=== PATIENT | female | born 1955 ===

== ENCOUNTER 2017-02-04 07:00 | Inpatient (IN) | payer OTHER ==
[~2017-02-04] VITALS: Ht 154.9 cm; Wt 83.9 kg
[2017-04-08] VITALS (10 sets, daily range): BP systolic 118–161; BP diastolic 52–93
--- NOTE | 2017-04-08 08:05 | Pre-Procedure Note/Attestation ---
Pre-Procedure Note/Attestation Complete Prior to Procedure Planned Procedure: bilateral Procedure Narrative: Posterior lumbar decompression interbody fusion, pedicle screw fixation and iliac crest bone marrow aspiration, with autograft and allograft for L4-5 level Attestation I attest that I discussed the nature of the procedure; its benefits; risks and complications; and alternatives (and the risks and benefits of such alternatives ), prior to the procedure, with the patient (or the patient's legal media sales representative). I attest that, if there was a reasonable possibility of needing a blood transfusion, the patient (or the patient's legal media sales representative) was given the [facility] standardized written summary, pursuant to the Xavi Chevak Blood Safety Act ([place] Health and Safety Code # 1645, as amended). I attest that I re-evaluated the patient just prior to the surgery and that there has been no change in the patient's H&P, except as documented below: MYRNA CORCORAN Apr 08, 2017 08:05
[2017-04-08] MEDS ORDERED: Vancomycin 1 GM in D5W 275 ML IVPB ONE (08:45)
[2017-04-08] MEDS ORDERED: Pantoprazole Inj IVP ONE (09:30)
[2017-04-08] MEDS ORDERED: TRAMADOL HCL50 MG ORAL (09:46)
[2017-04-08] MEDS ORDERED: VENTOLIN HFA18 GM INH (09:46)
[2017-04-08] MEDS ORDERED: MULTIVITAMINS1 EAC2 ORAL (09:46)
[2017-04-08] MEDS ORDERED: IBUPROFEN600 MG ORAL (09:46)
[2017-04-08] MEDS ORDERED: AMLODIPINE BESYL5 MG ORAL (09:48)
[2017-04-08] MEDS ORDERED: LR 1000ml 1,000 ML IVLG SCH (10:20)
--- NOTE | 2017-04-08 10:20 | Anethesia Preoperative Eval ---
Anesthesia Pre-op PMH/ROS General Date of Evaluation: Apr 08, 2017 Time of Evaluation: 11:56 Anesthesiologist: Ranjith ASA Score: ASA 3 Mallampati Score Class I : Soft palate, uvula, fauces, pillars visible Class II: Soft palate, uvula, fauces visible Class III: Soft palate, base of uvula visible Class IV: Only hard plate visible Mallampati Classification: Class III Surgeon: Hedy Diagnosis: Back Pain Surgical Procedure: PSF L4-5, Allograft Anesthesia History: none Social History: smoking, current smoker Family History: no anesthesia problems Allergies: Coded Allergies: PENICILLIN G (Verified Allergy, Severe, 04/07/17) anaphylactic shock Uncoded Allergies: hayfever (Allergy, Mild, 04/07/17) runny nose Medications: see eMAR Past Medical History Cardiovascular: Reports: HTN Pulmonary: Reports: COPD HEENT: Reports: cataract (R) PSxH Narrative: D&C Anesthesia Pre-op Phys. Exam Physician Exam Last Vital Signs Date Time Temp Pulse Resp B/P Pulse Ox O2 Delivery O2 Flow Rate FiO2 04/08/17 10:02 97.3 66 18 141/67 98 Room Air Constitutional: NAD Neurologic: CN 2-12 intact Cardiovascular: RRR Respiratory: CTA Gastrointestinal: S/NT/ND Airway Exam Mallampati Score: Class III MO: limited ROM: limited Teeth: missing, intact Anesthesia Pre-op A/P Risk Assessment & Plan Assessment: ASA 3 Plan: GA, BIS, Glidescope Status Change Before Surgery: No Pre-Antibiotics Drug: Vancomycin 1 Gram IV Given Within 1 Hr of Incision: Yes Time Given: 12:31 Dony Kasper MD Apr 08, 2017 10:20
[2017-04-08] MEDS ORDERED: Atropine Inj 1mg/10ml Syr IV PRN (10:30)
[2017-04-08] MEDS ORDERED: Ketorolac 60mg Inj IV PRN (10:30)
[2017-04-08] MEDS ORDERED: Meperidine 25mg/0.5ml Inj IV PRN (10:30)
[2017-04-08] MEDS ORDERED: Oxycodone/Acetaminophen 5-325 ORAL PRN (10:30)
[2017-04-08] MEDS ORDERED: Norco 5mg/325mg tab ORAL PRN (10:30)
[2017-04-08] MEDS ORDERED: fentaNYL 100 mcg/2 mL IV PRN (10:30)
[2017-04-08] MEDS ORDERED: Metoclopramide 10mg/2ml Inj IVP PRN (10:30)
[2017-04-08] MEDS ORDERED: Midazolam 2mg/2ml Inj IVP PRN (10:30)
[2017-04-08] MEDS ORDERED: LORazepam Inj 2mg/ml 1ml IV PRN (10:30)
[2017-04-08] MEDS ORDERED: Ketorolac 30mg Inj IV PRN (10:30)
[2017-04-08] MEDS ORDERED: Norco 7.5mg/325mg tab ORAL PRN ×2 (10:30→19:00)
[2017-04-08] MEDS ORDERED: DiphenhydrAMINE 50mg/ml Inj IVP PRN (10:30)
[2017-04-08] MEDS ORDERED: Acetaminophen (Non formulary) 1,000 MG/100 ML ML IV ONE (11:00)
[2017-04-08] MEDS ORDERED: Thrombin 5000 units TOPIC ONE ×2 (11:29→14:57)
[2017-04-08] MEDS ORDERED: Gelfoam Absorbable 1gm powder pkt TOPIC ONE (11:30)
[2017-04-08] MEDS ORDERED: Bupivacaine w/Epi 0.5% 30ml Vial INJ ONE (11:30)
[2017-04-08] MEDS ORDERED: Bacitracin 50000 Units Vial ONE (11:30)
[2017-04-08] MEDS ORDERED: fentaNYL 100 mcg/2 mL IV ONE (12:00)
[2017-04-08] MEDS ORDERED: Sterile Water Irrig 1000ml IRRIG ONE (12:00)
[2017-04-08] MEDS ORDERED: Neostigmine 1mg/ml 10ml Inj ONE (12:00)
[2017-04-08] MEDS ORDERED: Lidocaine 1% MPF 10mg/ml 5ml ONE (12:00)
[2017-04-08] MEDS ORDERED: Lidocaine 1% Plain 30 ml INJ ONE (12:00)
[2017-04-08] MEDS ORDERED: Propofol 10mg/ml 100ml btl IV ONE (12:00)
[2017-04-08] MEDS ORDERED: Dexamethasone 4mg/ml vial ONE (12:00)
[2017-04-08] MEDS ORDERED: Glycopyrrolate 0.2mg/ml 1ml Vial ONE (12:00)
[2017-04-08] MEDS ORDERED: Midazolam 2mg/2ml Inj ONE ×2 (12:00)
[2017-04-08] MEDS ORDERED: fentaNYL 250mcg/5ml ONE (12:00)
[2017-04-08] MEDS ORDERED: LR 1000ml ONE (12:00)
[2017-04-08] MEDS ORDERED: Thrombin 5000 units spray kit TOPIC ONE (12:53)
--- NOTE | 2017-04-08 18:26 | Immediate Post-Op Evaluation ---
Immediate Post-Op Evalulation Immediate Post-Op Evalulation Procedure: PSF L4-5 Date of Evaluation: Apr 08, 2017 Time of Evaluation: 18:34 IV Fluids: 1300 LR Blood Products: 0 Estimated Blood Loss: 100 Urinary Output: 150 Blood Pressure Systolic: 172 Blood Pressure Diastolic: 83 Pulse Rate: 93 Respiratory Rate: 16 O2 Sat by Pulse Oximetry: 99 Temperature (Fahrenheit): 98.1 Pain Score (1-10): 3 Nausea: No Vomiting: No Complications 0 Patient Status: awake, reacts, patent, extubated, none Hydration Status: adequate Dru Gram Vancomycin Given Within 1 Hr of Incision: Yes Time Given: 12:31 Dony Kasper MD Apr 08, 2017 18:26
--- NOTE | 2017-04-08 18:35 | Brief Operative Note ---
Immediate Post Operative Note Operative Note Chief Complaint: Sever low back pain difficulty walking, lumbar radiculopathy Pre-op Diagnosis: 1. Intractable low back pain and lumbar radiculopathy 2. Severe central stenosis and Grade 2 L4-5 anterolisthesis 3. Pars fracture right L4-5 4. Lack of improvement form medical therapy and interventional pain injections Procedure: 1. Transforaminal approach Left L4-5 level with Facet osteotomy and intraforaminal far lateral discectomy 2. Complete L4-5 discectomy and preparation of disc space. 3. Bilateral L4 hemilaminectomies with central and lateral decompression. 4. Repair left L4-5 dural tear with 6.0 prolene, Duragen and Epidural fat graft 5. Insertion of biomechanical device 9 mm PEEK cage, filled with autograft, allograft and iliac crest bone marrow aspirate, under fluoroscopy 6. Transpedicular fixation 50 x 5.0 and 45 x 6.0 Medacta screws 7. Posterolateral arthrodesis with bone graft and 45 mm rods 8. Internal neurolysis of the L5 roots bilaterally 9. Bilateral L4-5 foraminotomies 10. Multi-layer plastic surgical closure of 10 cm lumbar wound 11. Intra-op neuromonitoring and pedicle screw stimulation. 12.Microdissection 13. Right L4-5 iliac crest aspiration for grafting 14. [place] of local bone from lamina for grafting 15. Modifier 22 for degree of difficulty Post-op Diagnosis: same as pre-op Findings: consistent w/pre-op dx studies Surgeon: Jose Knott MD Utility Appraiser: Stefano Zarate Md Anesthesiologist: Dr Kasper Anesthesia: general Specimen: yes - disc L4-5 Complications: none Condition: stable Fluids: 1.5 liters crytalloids Estimated Blood Loss: volume - 100 cc Drains: none Implant(s) used?: Yes - Medacta screws and rods. Spinal element Interbody. JOSE Contreras Apr 08, 2017 18:35
[2017-04-08] MEDS: Hydromorphone 0.5mg/0.5ml inj IVP PRN ×2 (18:46→19:07)
[2017-04-08] MEDS ORDERED: NS w/KCl 20mEq 1,000 ML IV SCH (18:53)
[2017-04-08] MEDS ORDERED: traMADol 50mg tab ORAL PRN (19:00)
[2017-04-08] MEDS ORDERED: Milk of Magnesia 30ml Ud ORAL PRN (19:00)
--- NOTE | 2017-04-08 19:04 | General Progress Note ---
Progress Note Progress Note Neurosurgery post-op S/ Comfortable No headache O/ Alert interactive Moves all extremities well Wound completely dry normal sensation in the lower extremities doing well admit MYRNA CORCORAN Apr 08, 2017 19:04
[2017-04-08] MEDS: NS w/KCl 20mEq 1,000 ML IV SCH (20:00)
--- NOTE | 2017-04-08 21:23 | General Progress Note ---
Assessment/Plan Status Narrative s/p complex spine surgery doing well pt ot perioperative antibiotic prophyalxis Assessment/Plan DVT prophylaxis Subjective Date patient seen: Apr 08, 2017 Time patient seen: 21:22 Constitutional: Reports: no symptoms Cardiovascular: Reports: no symptoms Respiratory: Reports: no symptoms Allergies: Coded Allergies: PENICILLIN G (Verified Allergy, Severe, 04/07/17) anaphylactic shock Uncoded Allergies: hayfever (Allergy, Mild, 04/07/17) runny nose Objective Last 24 Hour Vital Signs Date Time Temp Pulse Resp B/P Pulse Ox O2 Delivery O2 Flow Rate FiO2 04/08/17 19:30 98.0 92 18 129/60 100 Nasal Cannula 3.0 04/08/17 19:30 98.0 04/08/17 19:15 88 18 136/58 99 Nasal Cannula 3.0 04/08/17 19:05 86 20 147/60 99 Nasal Cannula 3.0 04/08/17 18:55 80 15 118/56 98 Nasal Cannula 3.0 04/08/17 18:45 94 20 118/52 95 Nasal Cannula 3.0 04/08/17 18:35 96 16 133/64 96 Nasal Cannula 3.0 04/08/17 18:30 98 22 151/81 97 Simple Mask 6.0 04/08/17 18:26 93 16 99 04/08/17 18:23 98.1 94 20 161/93 97 Simple Mask 6.0 04/08/17 10:02 97.3 66 18 141/67 98 Room Air Height (Feet): 5 Height (Inches): 1.00 Weight (Pounds): 185 General Appearance: WD/WN Cardiovascular: normal rate, regular rhythm, no JVD Respiratory/Chest: lungs clear Abdomen: soft Extremities: non-tender JENNIFER GOMEZ Apr 08, 2017 21:23
[2017-04-08] MEDS: HYDROmorphone 1mg/ml Carpuject IVP PRN (22:03)
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
[2017-04-09] VITALS: BP 136/75
[2017-04-09] MEDS: Cyclobenzaprine 10mg Tab ORAL PRN (00:31)
[2017-04-09] MEDS: HYDROmorphone 1mg/ml Carpuject IVP PRN ×4 (00:33→13:09)
[2017-04-09 04:00] VITALS: BP 119/56
[2017-04-09] MEDS ORDERED: Vancomycin 1 GM in D5W 275 ML IVPB SCH (06:30)
[2017-04-09] MEDS: NS w/KCl 20mEq 1,000 ML IV SCH (06:45)
[2017-04-09 07:07] LABS: ANION GAP 15 (5-15); CALCIUM 8.6 mg/dL (8.6-10.2); CARBON DIOXIDE 23 mEQ/L (20-30); CHLORIDE 99 mEQ/L (98-107); CREATININE 0.8 mg/dL (0.5-0.9); GLOMERULAR FILTRATION RATE > 60 mL/min (>60); HEMOLYSIS 0; POTASSIUM 4.9 mEQ/L (3.4-4.9); SODIUM 137 mEQ/L (135-145)
[2017-04-09 07:08] LABS: BASOPHILS % (AUTO) 0.2 % (0.0-2.0); LYMPHOCYTES % (AUTO) 7.6 % (20.0-45.0); MEAN CORPUSCULAR HGB CONC 33.2 G/DL (32.0-36.0); MEAN CORPUSCULAR VOLUME 90 FL (80-99); MEAN PLATELET VOLUME 6.8 FL (6.5-10.1); MONOCYTES % (AUTO) 9.8 % (1.0-10.0); NEUTROPHILS % (AUTO) 82.4 % (45.0-75.0); PLATELET COUNT 247 K/UL (150-450); RED BLOOD COUNT 4.12 M/UL (4.20-5.40); RED CELL DISTRIBUTION WIDTH 11.6 % (11.6-14.8); WHITE BLOOD COUNT 16.4 K/UL (4.8-10.8)
[2017-04-09 08:24] VITALS: BP 115/54
[2017-04-09] MEDS: Docusate 100mg cap ORAL SCH ×2 (08:35→18:11)
[2017-04-09] MEDS: Pericolace tab ORAL SCH ×2 (08:35→18:11)
[2017-04-09] MEDS: Norco 7.5mg/325mg tab ORAL PRN ×2 (09:33→18:11)
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
--- NOTE | 2017-04-09 11:05 | 48 Hour Post Anesthesia Eval ---
Post Anesthesia Evaluation Procedure: PSF L4-5 Date of Evaluation: Apr 09, 2017 Time of Evaluation: 11:04 Blood Pressure Systolic: 115 0: 84 Pulse Rate: 81 Respiratory Rate: 20 Temperature (Fahrenheit): 98.1 O2 Sat by Pulse Oximetry: 92 Airway: patent Nausea: No Vomiting: No Pain Intensity: 2 Hydration Status: adequate Cardiopulmonary Status: Stable Mental Status/LOC: patient returned to baseline Follow-up Care/Observations: 0 Post-Anesthesia Complications: 0 Follow-up care needed: N/A Dony Ksaper MD Apr 09, 2017 11:05
[2017-04-09 12:48] VITALS: BP 142/75
--- NOTE | 2017-04-09 13:49 | General Progress Note ---
Progress Note Progress Note Neurosuegery POD#1 S/ Feels very well. Pain under control. Ambulated with PT No headache. No leg pain O/ Vs Last 24 Hour Vital Signs Date Time Temp Pulse Resp B/P Pulse Ox O2 Delivery O2 Flow Rate FiO2 04/09/17 12:48 97.1 84 20 142/75 100 Room Air 04/09/17 11:05 81 20 92 04/09/17 08:24 98.1 81 20 115/54 92 Room Air 04/09/17 04:00 98.6 78 18 119/56 94 Room Air 04/09/17 00:00 98.1 76 18 136/75 98 Room Air 04/08/17 20:00 97.9 69 19 119/56 100 Nasal Cannula 3.5 04/08/17 19:30 98.0 92 18 129/60 100 Nasal Cannula 3.0 04/08/17 19:30 98.0 04/08/17 19:15 88 18 136/58 99 Nasal Cannula 3.0 04/08/17 19:05 86 20 147/60 99 Nasal Cannula 3.0 04/08/17 18:55 80 15 118/56 98 Nasal Cannula 3.0 04/08/17 18:45 94 20 118/52 95 Nasal Cannula 3.0 04/08/17 18:35 96 16 133/64 96 Nasal Cannula 3.0 04/08/17 18:30 98 22 151/81 97 Simple Mask 6.0 04/08/17 18:26 93 16 99 04/08/17 18:23 98.1 94 20 161/93 97 Simple Mask 6.0 exam Alert and oriented x4 Incision completely dry and flat. No fluctuance. Dressing intact. Motor 5/5 Sensory normal Labs Laboratory Tests Test 04/09/17 05:30 White Blood Count 16.4 K/UL (4.8-10.8) H Red Blood Count 4.12 M/UL (4.20-5.40) L Hemoglobin 12.3 G/DL (12.0-16.0) Hematocrit 37.1 % (37.0-47.0) Mean Corpuscular Volume 90 FL (80-99) Mean Corpuscular Hemoglobin 30.0 PG (27.0-31.0) Mean Corpuscular Hemoglobin Concent 33.2 G/DL (32.0-36.0) Red Cell Distribution Width 11.6 % (11.6-14.8) Platelet Count 247 K/UL (150-450) Mean Platelet Volume 6.8 FL (6.5-10.1) Neutrophils (%) (Auto) 82.4 % (45.0-75.0) H Lymphocytes (%) (Auto) 7.6 % (20.0-45.0) L Monocytes (%) (Auto) 9.8 % (1.0-10.0) Eosinophils (%) (Auto) 0.0 % (0.0-3.0) Basophils (%) (Auto) 0.2 % (0.0-2.0) Sodium Level 137 mEQ/L (135-145) Potassium Level 4.9 mEQ/L (3.4-4.9) Chloride Level 99 mEQ/L (98-107) Carbon Dioxide Level 23 mEQ/L (20-30) Anion Gap 15 (5-15) Blood Urea Nitrogen 18 mg/dL (7-23) Creatinine 0.8 mg/dL (0.5-0.9) Estimat Glomerular Filtration Rate > 60 mL/min (>60) Glucose Level 112 mg/dL (74-106) H Calcium Level 8.6 mg/dL (8.6-10.2) doing very well No evidence of spinal fluid leak improvement in radiculopathy. MYRNA CORCORAN Apr 09, 2017 13:49
[2017-04-09 15:52] VITALS: BP 114/91
[2017-04-09 20:22] VITALS: BP 121/57
--- NOTE | 2017-04-09 20:39 | General Progress Note ---
Assessment/Plan Status Narrative s/p complex apine surgery pt ort dvt prophyyalxis paincontrol give 10 mg oxycontin to hold her over the night Assessment/Plan DVT prophylaxis Subjective Date patient seen: Apr 09, 2017 Time patient seen: 20:38 Constitutional: Reports: no symptoms HEENT: Reports: no symptoms Cardiovascular: Reports: no symptoms Respiratory: Reports: no symptoms Allergies: Coded Allergies: PENICILLIN G (Verified Allergy, Severe, 04/07/17) anaphylactic shock Uncoded Allergies: hayfever (Allergy, Mild, 04/07/17) runny nose Subjective has a lot of pain Objective Last 24 Hour Vital Signs Date Time Temp Pulse Resp B/P Pulse Ox O2 Delivery O2 Flow Rate FiO2 04/09/17 20:22 98.2 80 19 121/57 97 Room Air 04/09/17 15:52 97.6 76 20 114/91 98 Room Air 04/09/17 12:48 97.1 84 20 142/75 100 Room Air 04/09/17 11:05 81 20 92 04/09/17 08:24 98.1 81 20 115/54 92 Room Air 04/09/17 04:00 98.6 78 18 119/56 94 Room Air 04/09/17 00:00 98.1 76 18 136/75 98 Room Air Intake and Output 04/08/17 04/09/17 19:00 07:00 Intake Total 1800 ml 600 ml Output Total 250 ml 1100 ml Balance 1550 ml -500 ml Intake Oral 400 ml IV Total 1800 ml 200 ml Output Urine Total 150 ml 1100 ml Estimated Blood Loss 100 ml # Voids 1 Laboratory Tests 04/09/17 05:30: White Blood Count 16.4H, Red Blood Count 4.12L, Hemoglobin 12.3, Hematocrit 37.1 , Mean Corpuscular Volume 90, Mean Corpuscular Hemoglobin 30.0, Mean Corpuscular Hemoglobin Concent 33.2, Red Cell Distribution Width 11.6, Platelet Count 247, Mean Platelet Volume 6.8, Neutrophils (%) (Auto) 82.4H, Lymphocytes ( %) (Auto) 7.6L, Monocytes (%) (Auto) 9.8, Eosinophils (%) (Auto) 0.0, Basophils (%) (Auto) 0.2, Sodium Level 137, Potassium Level 4.9, Chloride Level 99, Carbon Dioxide Level 23, Anion Gap 15, Blood Urea Nitrogen 18, Creatinine 0.8, Estimat Glomerular Filtration Rate > 60, Glucose Level 112H, Calcium Level 8.6 Height (Feet): 5 Height (Inches): 1.00 Weight (Pounds): 185 General Appearance: WD/WN Neck: non-tender Cardiovascular: normal rate, regular rhythm, no JVD Respiratory/Chest: chest wall non-tender Abdomen: soft JENNIFER GOMEZ Apr 09, 2017 20:39
[2017-04-09] MEDS ORDERED: oxyCONTIN 10mg tab ORAL ONE (21:15)
--- NOTE | 2017-04-09 22:31 | Discharge Summary ---
DATE OF ADMISSION: 04/08/2017 DATE OF DISCHARGE: 04/10/2017 DISCHARGE DIAGNOSIS: Status post posterior lumbar decompressive surgery, fusion and stabilization L4-L5 level with repair of spinal fluid leak. HISTORY OF PRESENT ILLNESS: Please refer to the chart for detailed History and Physical. HOSPITAL COURSE: The patient was admitted on 04/08/2017 and underwent uneventful posterior lumbar decompressive surgery and repair of incidental durotomy at L4-L5 level with pedicle screw fixation and interbody graft. She has done well postoperatively. She is ambulating. She has no headaches or postural headaches suggestive of any type of CSF leak. Her radiculopathy symptoms have improved. She is pleased with the results of the operation. She is being discharged home with appropriate discharge instructions. DISPOSITION: Home. DISCHARGE MEDICATIONS: Include [place], Flexeril, and gabapentin with the appropriate use instructions. DIET: Regular. DISCHARGE ACTIVITY: The patient is asked to wear lumbar brace when out of bed. She is asked not to do any bending, lifting, or twisting type activities. DISCHARGE INSTRUCTIONS: In case of fever more than 101 degrees, chills, or drainage from the incision, the patient is to contact Dr. Knott or go to the nearest ER. DISCHARGE FOLLOWUP: Follow up with Dr. Knott in 10 days. DISPOSITION: Home. CONSULTATIONS: Internal Medicine, Jorge Subramanian M.D. COMPLICATIONS: None. Jose Knott M.D. DR: KEISHA JOB#: [id number] CC:
[2017-04-10 00:16] VITALS: BP 128/67
[2017-04-10] MEDS: HYDROmorphone 1mg/ml Carpuject IVP PRN ×2 (00:25→06:30)
[2017-04-10] MEDS: Cyclobenzaprine 10mg Tab ORAL PRN (03:55)
[2017-04-10] MEDS: Norco 7.5mg/325mg tab ORAL PRN ×5 (03:57→22:41)
[2017-04-10 04:28] VITALS: BP 122/63
[2017-04-10 09:28] VITALS: BP 108/57
[2017-04-10] MEDS: Pericolace tab ORAL SCH ×2 (10:12→17:06)
[2017-04-10] MEDS: Docusate 100mg cap ORAL SCH ×2 (10:12→17:06)
[2017-04-10 12:00] VITALS: BP 133/56
[2017-04-10 18:04] VITALS: BP 108/58
[2017-04-10 20:00] VITALS: BP 120/60
[2017-04-11] VITALS: BP 130/53
[2017-04-11] MEDS: Cyclobenzaprine 10mg Tab ORAL PRN (02:37)
[2017-04-11 04:00] VITALS: BP 136/75
[2017-04-11] MEDS: Norco 7.5mg/325mg tab ORAL PRN ×2 (04:07→10:35)
[2017-04-11] MEDS: Docusate 100mg cap ORAL SCH (08:46)
[2017-04-11] MEDS: Pericolace tab ORAL SCH (08:46)
[2017-04-11 09:00] VITALS: BP 105/54
[2017-04-11] MEDS ORDERED: NORCO 7.5-3251 EACH ORAL (10:49)
[2017-04-11] MEDS ORDERED: CYCLOBENZAPRINE10 MG ORAL (10:49)
[2017-04-11] MEDS ORDERED: GABAPENTIN300 MG ORAL (10:51)
== END 2017-04-11 11:48 | disposition home or self-care (01) | DRG 460 ==
LOC: SDSOVERFLO 04-08 09:05 → 3E 04-08 18:23
PROC: 0QB20ZZ Excision of Right Pelvic Bone, Open Approach (ICD-10-PCS; principal; 2017-04-08 11:00)
PROC: 0ST20ZZ Resection of Lumbar Vertebral Disc, Open Approach (ICD-10-PCS; principal; 2017-04-08 11:00)
PROC: 0SG00AJ Fusion of Lumbar Vertebral Joint with Interbody Fusion Device, Posterior Approach, Anterior Column, Open Approach (ICD-10-PCS; principal; 2017-04-08 11:00)
DX: M51.16 Intervertebral disc disorders with radiculopathy, lumbar region (principal); R26.2 Difficulty in walking, not elsewhere classified; M48.06 Spinal stenosis, lumbar region; M47.26 Other spondylosis with radiculopathy, lumbar region; V89.2XXS Person injured in unspecified motor-vehicle accident, traffic, sequela
CPT/HCPCS: 36415; 72020; 76001; 80048; 85025; 86850; 86900; 86901; 87081; 94003; 94150; C9399; J2250; J2405; J2710